=== PATIENT | female | born 1990 | race Caucasian/White ===

== ENCOUNTER 2018-03-10 20:01 | Emergency (ER) | payer BC ==
[2018-03-10] MEDS ORDERED: MORPHINE 2 MG/ML CARPUJECT IVP STA (20:21)
[2018-03-10] MEDS ORDERED: KETOROLAC 60 MG/2 ML VIAL IVP STA (20:21)
[2018-03-10] MEDS ORDERED: ONDANSETRON 4 MG/2 ML VIAL IVP STA (20:21)
[2018-03-10] MEDS ORDERED: SODIUM CHLORIDE 0.9% 1,000 ML IV ONE (20:21)
--- NOTE | 2018-03-10 20:23 | ED Physician Documentation ---
PD HPI ABD PAIN - Stated complaint Stated Complaint: RT FLANK PX/NAUSEA - Chief complaint Chief Complaint: Abd Pain - History obtained from History obtained from: Patient - History of Present Illness Timing - onset: How many hours ago (3), Today Timing - duration: Hours (3) Timing - details: Abrupt onset (while sitting at couch), Still present Quality: Aching, Sharp, Pain Location: RLQ, Suprapubic Radiation: Right flank Improved by: No: Eating, Position Worsened by: Palpation (right abd). No: Eating, Moving, Breathing, Position Associated symptoms: Nausea, Vaginal dc (minimal). No: Fever, Vomiting, Diarrhea, Constipation, Dysuria, Hematuria, Vaginal bleeding Similar symptoms before: Has not had sx before Recently seen: Not recently seen Review of Systems Constitutional: denies: Fever, Chills Nose: denies: Rhinorrhea / runny nose, Congestion Throat: denies: Sore throat Cardiac: denies: Chest pain / pressure Respiratory: denies: Cough GI: reports: Abdominal Pain, Nausea. denies: Vomiting, Constipation, Diarrhea, Bloody / black stool : reports: Discharge (minimal, not out of normal for her). denies: Dysuria, Frequency, Irregular menses, Missed period Skin: denies: Rash Musculoskeletal: denies: Neck pain Neurologic: denies: Near syncope PD PAST MEDICAL HISTORY - Past Medical History Cardiovascular: None Respiratory: None Neuro: None Endocrine/Autoimmune: None - Present Medications Home Medications: Ambulatory Orders Medication Instructions Recorded Confirmed clonazePAM [Clonazepam] 1 mg PO PRN PRN 03/10/18 03/10/18 traZODone [Desyrel] 50 mg PO ONCE 03/10/18 Hydrocodone/Acetaminophen [[place] 1 each PO Q6H PRN #15 tablet 03/11/18 5-325 Tablet] Ondansetron Odt [Zofran] 4 mg TL Q6H PRN #10 tablet 03/11/18 - Allergies Allergies/Adverse Reactions: Allergies Allergy/AdvReac Type Severity Reaction Status Date / Time No Known Drug Allergies Allergy Verified 03/10/18 20:08 PD ED PE NORMAL - Vitals Vital signs reviewed: Yes - General General: Alert and oriented X 3, Well developed/nourished, Other (appears in considerable pain, hunched over, wanting to walk around) - Neck Neck: Supple, no meningeal sign - Abdomen Abdomen: Normal bowel sounds, Soft, Non distended, No organomegaly, Other (tender right side but not to severity of the underlying pain) - Female Female : Deferred - Rectal Rectal: Deferred - Back Back: Other (considerable right CVA tenderness) - Derm Derm: Normal color, Warm and dry - Extremities Extremities: Normal ROM s pain - Neuro Neuro: Alert and oriented X 3, No motor deficit, Normal speech Results - Vitals Vitals: Vital Signs - 24 hr 03/10/18 03/10/18 03/10/18 20:05 21:09 21:35 Temperature 36.5 C Heart Rate 111 H 87 67 Respiratory 20 18 15 Rate Blood Pressure 126/111 H 128/93 H 114/77 O2 Saturation 98 96 98 03/10/18 03/10/18 03/11/18 21:47 22:56 00:34 Temperature Heart Rate 69 65 66 Respiratory 16 16 16 Rate Blood Pressure 114/77 117/80 119/79 O2 Saturation 99 99 98 03/11/18 03/11/18 03/11/18 01:24 02:43 02:52 Temperature 36.6 C Heart Rate 72 62 64 Respiratory 16 14 15 Rate Blood Pressure 111/70 122/81 H 122/81 H O2 Saturation 97 99 97 Oxygen O2 Source Room air - Labs Labs: Laboratory Tests 03/10/18 03/10/18 03/10/18 18:30 18:30 20:23 WBC 7.7 RBC 4.57 Hgb 13.9 Hct 41.0 MCV 89.7 MCH 30.3 MCHC 33.8 RDW 13.5 Plt Count 289 MPV 8.7 Neut # (Auto) 4.6 Lymph # (Auto) 2.4 [place] # (Auto) 0.6 Eos # (Auto) 0.1 Baso # (Auto) 0.1 Absolute Nucleated RBC 0.00 Nucleated RBC % 0.0 Sodium 136 Potassium 4.2 Chloride 103 Carbon Dioxide 26 Anion Gap 7.0 BUN 9 Creatinine 0.7 Estimated GFR (MDRD) 98 Glucose 101 H Calcium 9.4 Total Bilirubin 0.4 AST 18 ALT 20 Alkaline Phosphatase 51 Total Protein 7.7 Albumin 4.3 Globulin 3.4 Albumin/Globulin Ratio 1.3 Lipase 29 Urine Color YELLOW Urine Clarity CLEAR Urine pH 6.0 Ur Specific [place] 1.015 Urine Protein NEGATIVE Urine Glucose (UA) NEGATIVE Urine Ketones NEGATIVE Urine Occult Blood TRACE-LYSE Urine Nitrite NEGATIVE Urine Bilirubin NEGATIVE Urine Urobilinogen 0.2 (NORMAL) Ur Leukocyte Esterase NEGATIVE Ur Microscopic Review NOT INDICATED Urine Culture Comments NOT INDICATED Urine HCG, Qual 03/10/18 20:23 WBC RBC Hgb Hct MCV MCH MCHC RDW Plt Count MPV Neut # (Auto) Lymph # (Auto) [place] # (Auto) Eos # (Auto) Baso # (Auto) Absolute Nucleated RBC Nucleated RBC % Sodium Potassium Chloride Carbon Dioxide Anion Gap BUN Creatinine Estimated GFR (MDRD) Glucose Calcium Total Bilirubin AST ALT Alkaline Phosphatase Total Protein Albumin Globulin Albumin/Globulin Ratio Lipase Urine Color Urine Clarity Urine pH Ur Specific [place] 1.015 Urine Protein Urine Glucose (UA) Urine Ketones Urine Occult Blood Urine Nitrite Urine Bilirubin Urine Urobilinogen Ur Leukocyte Esterase Ur Microscopic Review Urine Culture Comments Urine HCG, Qual NEGATIVE - Rads (name of study) KUB CT Radiology: Prelim report reviewed (No kidney stones; no acute process to explain the pain. See Rad report.), EMP read contemporaneously pelvic U/S Radiology: Prelim report reviewed (small 1-2 cm cyst on right. Some pelvic free fluid. Normal ovarian blood flow. ) PD MEDICAL DECISION MAKING - ED course Complexity details: reviewed results (CT did not show any acute process to explain the pain. I thought this was going to be a kidney stone but she had minimal blood on her urine and so we had opted for CT. This did not give an obvious answer. Her pain is feeling right lower abdomen and pelvis at this time with radiation to the back. Concern for ovarian torsion as that would not show up on CT scan. Pelvic ultrasound was done and showed normal blood flow to the ovary. There was a small cyst on the right and some free fluid as well. I would consider partially ruptured ovarian cyst tests a possibility for the cause of the pain. Otherwise musculoskeletal pain and I think the rest would show up on scan or ultrasound.), re-evaluated patient (Pain is improved with medication. She was hurting a bit more after the ultrasound due to the manipulation in the area. She states it was tender in the right adnexa with the ultrasound. Given the findings on labs and imaging, I would conclude as possibility of a partially ruptured ovarian cyst with a small cyst on the right and some free fluid in the pelvis. No other obvious causes identified at this time.), considered differential (most likely kidney stone, but also consider ruptured cyst/ovarian, ectopic, less likely gallbladder, and unlikely appy given abrupt onset. ), d/w patient Departure - Departure Disposition: 01 Home, Self Care Clinical Impression: Right lower quadrant abdominal pain, Ruptured ovarian cyst Condition: Stable Record reviewed to determine appropriate education?: Yes Instructions: ED Cyst Ovarian Prescriptions: Hydrocodone/Acetaminophen [[place] 5-325 Tablet] 1 each PO Q6H PRN #15 tablet PRN Reason: Pain Ondansetron Odt [Zofran] 4 mg TL Q6H PRN #10 tablet PRN Reason: Nausea / Vomiting Comments: Your CT scan did not show any obvious abnormality. The ultrasound showed some free fluid in the pelvis and a small cyst. Lacking other causes for the pain, your symptoms could be caused by a ruptured cyst with just a small residual of the cyst left. With that, I would anticipate gradual improvement over the next day or 2. Use anti-inflammatories such as ibuprofen or naproxen 2-3 times a day. Add Tylenol or hydrocodone if needed for pain. Use ondansetron if needed for nausea. Recheck if not improving over the next few days. Return if other symptoms develop such as fever, more generalized pain, significant vaginal bleeding, repetitive vomiting or other concerns. Recheck also if not improved over the next several days. Activity as able. Discharge Date/Time: 03/11/18 02:55
[2018-03-10 20:34] LABS: BILIRUBIN,URINE NEGATIVE (NEGATIVE); GLUCOSE, URINE (UA) NEGATIVE (NEGATIVE); KETONES,URINE (UA) NEGATIVE (NEGATIVE); LEUKOCYTE ESTERASE, URINE NEGATIVE (NEGATIVE); NITRITE,URINE NEGATIVE (NEGATIVE); OCCULT BLOOD,URINE TRACE-LYSE (NEGATIVE); PROTEIN,URINE NEGATIVE (NEGATIVE); UROBILINOGEN,URINE 0.2 (NORMAL) E.U./dL (NORMAL)
[2018-03-10 20:40] LABS: CLARITY,URINE CLEAR (CLEAR)
[2018-03-10 20:50] LABS: BASOPHILS # (AUTO) 0.1 10^3/uL (0.0-0.1); BASOPHILS % (AUTO) 0.9 %; EOSINOPHILS # (AUTO) 0.1 10^3/uL (0.0-0.7); EOSINOPHILS % (AUTO) 1.8 %; HGB - HEMOGLOBIN 13.9 g/dL (12.0-16.0); LYMPHOCYTES # (AUTO) 2.4 10^3/uL (1.5-3.5); LYMPHOCYTES % (AUTO) 31.2 %; MEAN CORPUSCULAR HEMOGLOBIN 30.3 pg (27.0-31.0); MEAN CORPUSCULAR HGB CONC 33.8 g/dL (32.0-36.0); MEAN CORPUSCULAR VOLUME 89.7 fL (81.0-99.0); MEAN PLATELET VOLUME 8.7 fL (7.9-10.8); MONOCYTES # (AUTO) 0.6 10^3/uL (0.0-1.0); MONOCYTES % (AUTO) 7.2 %; NEUTROPHILS # (AUTO) 4.6 10^3/uL (1.5-6.6); NEUTROPHILS % (AUTO) 58.9 %; PLT - PLATELET COUNT 289 10^3/uL (130-450); RED BLOOD COUNT 4.57 10^6/uL (4.20-5.40); RED CELL DISTRIBUTION WIDTH 13.5 % (12.0-15.0); WHITE BLOOD COUNT 7.7 x10^3/uL (4.8-10.8)
[2018-03-10 20:53] LABS: HCG UR QUAL NEGATIVE
[2018-03-10 21:00] LABS: ALBUMIN 4.3 g/dL (3.2-5.5); ALBUMIN/GLOBULIN RATIO 1.3 (1.0-2.2); BILIRUBIN,TOTAL 0.4 mg/dL (0.2-1.0); CALCIUM 9.4 mg/dL (8.5-10.3); CREATININE 0.7 mg/dL (0.4-1.0); TOTAL PROTEIN 7.7 g/dL (6.7-8.2)
[2018-03-10] MEDS ORDERED: LIDOCAINE-MPF 2% 6 ML in SODIUM CHLORIDE 0.9% 50 ML IV STA (21:20)
[2018-03-10] MEDS ORDERED: MORPHINE 10 MG/ML VIAL IVP STA (21:20)
--- NOTE | 2018-03-10 22:19 | CT Report ---
Reason: right flank/abd pain Procedure Date: 03/10/2018 Accession Number: [id number] / [id number] Procedure: CT - KUB CPT Code: FULL RESULT: EXAM: CT ABDOMEN AND PELVIS (CT KUB) EXAM DATE: 03/10/2018 10:02 PM. CLINICAL HISTORY: Right flank/abd pain. COMPARISONS: None. TECHNIQUE: Routine axial helical CT imaging was performed through the abdomen and pelvis without IV contrast. Reconstructions: Coronal and sagittal. In accordance with CT protocol optimization, one or more of the following dose reduction techniques were utilized for this exam: automated exposure control, adjustment of mA and/or KV based on patient size, or use of iterative reconstructive technique. FINDINGS: Lung Bases: Unremarkable. Right Kidney/Ureter: No stones, hydronephrosis, or hydroureter. No perinephric fat stranding. Left Kidney/Ureter: No stones, hydronephrosis, or hydroureter. No perinephric fat stranding. Other Solid Organs: Noncontrast images of the solid organs are grossly unremarkable. Gallbladder/Bile Ducts: Unremarkable. Peritoneal Cavity: No free fluid, free air or kosta adenopathy. Bowel is grossly unremarkable. Pelvic Organs: No bladder stones or wall thickening. Noncontrast images of the visualized pelvic organs are unremarkable. There are no inflammatory changes of the colon. The appendix is normal. Vasculature: Unremarkable. Other: None. IMPRESSION: 1. Unremarkable CT scan abdomen and pelvis. No evidence for renal calculi. RADIA
[2018-03-10] MEDS ORDERED: HYDROmorphone 1 MG/ML CARPUJECT IVP STA (23:44)
--- NOTE | 2018-03-11 01:50 | Ultrasound Report ---
Reason: right lower abd/flank pain; normal CT Procedure Date: 03/11/2018 Accession Number: [id number] / [id number] Procedure: US - Pelvic w/Transvag+Doppler Ltd CPT Code: FULL RESULT: EXAM: PELVIC ULTRASOUND EXAM DATE: 03/11/2018 01:31 AM. CLINICAL HISTORY: Right lower abd/flank pain; normal CT. COMPARISON: None. TECHNIQUE: Realtime transabdominal pelvic scan performed to identify the uterus and adnexa and as an overview of other pelvic structures, followed by transvaginal scan to provide greater detail of the uterus and adnexa, with static image documentation. Top Doppler ultrasound: Spectral Doppler ultrasound was obtained to evaluate for possible ovarian torsion. FINDINGS: Uterus: 8.8 x 5.5 x 4.3 cm, volume 109 cc. Anteverted position. Normal overall size and echotexture. Masses: None. Endometrium: 12.4 mm. Normal. Cervix: Unremarkable. Right Ovary: 3.2 x 1.8 x 1.9 cm, volume 5.7 cc. Normal echotexture and blood flow. Left Ovary: 2.4 x 1.8 x 1.4 cm, volume 3.2 cc. Normal echotexture and blood flow. Free Fluid: There is a small amount of free fluid inferior to the right ovary measuring 1.5 x 0.8 x 1.0 cm. Other: None. IMPRESSION: 1. Unremarkable ovaries. No evidence for ovarian torsion. 2. Small amount of free fluid inferior to the right ovary. Significance uncertain. This could represent a very small cyst. RADIA
[2018-03-11] MEDS ORDERED: oxyCODONE/ACET 5/325 Prepack 4 PO STA (02:26)
[2018-03-11] MEDS ORDERED: HYDROmorphone 1 MG/ML CARPUJECT IVP STA (02:26)
[2018-03-11 02:44] VITALS: BP 122/81
== END 2018-03-11 02:55 | disposition home or self-care (01) ==
LOC: ED 20:01
DX: R10.31 Right lower quadrant pain (principal); N83.201 Unspecified ovarian cyst, right side
CPT/HCPCS: 36415; 74176; 76830; 76856; 80053; 81003; 81025; 83690; 85025; 93976; 96374; 96375; 96376; 99283; 99284; J1170; J7040; 81001; 87086